=== PATIENT | male | born 1960 | race Caucasian/White ===

== ENCOUNTER 2018-12-30 22:28 | Emergency (ER) | payer SELFPAY ==
[~2018-12-30] VITALS: Ht 177.8 cm; Wt 90.0 kg
[2018-12-30 22:35] VITALS: BP 143/90
== END 2018-12-30 23:16 | disposition home or self-care (01) ==
LOC: ED 23:10
DX: F10.120 Alcohol abuse with intoxication, uncomplicated (principal); R42 Dizziness and giddiness; Z72.9 Problem related to lifestyle, unspecified
CPT/HCPCS: 93005; 99283

== ENCOUNTER 2020-05-05 16:50 | Emergency (ER) | payer MEDICAID, MEDICARE ==
[~2020-05-05] VITALS: Ht 182.9 cm; Wt 91.0 kg
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
[2020-05-05] MEDS ORDERED: SODIUM CHLORIDE FLUSH 10ML SYR IVF ONE (17:30)
[2020-05-05 18:13] LABS: BASOPHILS % (AUTO) 0 % (0-1); EOSINOPHILS % (AUTO) 3 % (1-7); LYMPHOCYTES % (AUTO) 32 % (22-44); MEAN CORPUSCULAR HEMOGLOBIN 32.8 pg (27.5-34.5); MEAN CORPUSCULAR HGB CONC 34.4 g/dL (33.2-36.2); MONOCYTES % (AUTO) 10 % (2-9); NEUTROPHILS % (AUTO) 55 % (42-75); PLATELET COUNT 373 x10^3/uL (130-400); RED BLOOD COUNT 4.58 x10^6/uL (4.38-5.82); RED CELL DISTRIBUTION WIDTH 15.3 % (9.4-14.8)
[2020-05-05 18:23] LABS: MD NO
[2020-05-05 18:25] LABS: ALBUMIN 3.5 g/dL (3.4-5.0); ANION GAP 7 mmol/L (5-15); CALCIUM 8.6 mg/dL (8.5-10.1); CHLORIDE 111 mmol/L (98-107)
[2020-05-05 18:29] LABS: ALANINE AMINOTRANSFERASE 42 U/L (12-78); ALKALINE PHOSPHATASE 35 U/L (45-117); BILIRUBIN,TOTAL 0.3 mg/dL (0.2-1.0); CREATININE 0.54 mg/dL (0.7-1.3); TOTAL PROTEIN 7.5 g/dL (6.4-8.2)
--- NOTE | 2020-05-05 18:29 | NUR ---
PT RESTING ON ED GURNEY, RAILS UP, CALL LIGHT WITHIN REACH, WATCHING TV. PT PROVIDED URINAL. VSS.
--- NOTE | 2020-05-05 19:25 | NUR ---
REPORT RECEIVED FROM RAQUEL KWON
--- NOTE | 2020-05-05 19:54 | NUR ---
PT SLEEPING WITH HEAD UNDER BLANKET. DENIES NEEDS AT THIS TIME. RESP EVEN AND UNLABORED
--- NOTE | 2020-05-05 20:52 | NUR ---
PT RESTING, NO NEEDS AT THIS TIME. EASY TO WAKE UP, RESP EVEN AND UNLABORED
--- NOTE | 2020-05-05 22:27 | NUR ---
PT UP AND WALKING AROUND ROOM WITH STEADY GAIT AND CLEAR SPEECH.
[2020-05-05 22:41] VITALS: BP 124/68
== END 2020-05-05 22:45 | disposition home or self-care (01) ==
LOC: ED 20:24
DX: S06.9X9A Unspecified intracranial injury with loss of consciousness of unspecified duration, initial encounter (principal); G31.2 Degeneration of nervous system due to alcohol; F10.120 Alcohol abuse with intoxication, uncomplicated; F17.210 Nicotine dependence, cigarettes, uncomplicated; X58.XXXA Exposure to other specified factors, initial encounter; Y93.89 Activity, other specified; Y92.89 Other specified places as the place of occurrence of the external cause; Y99.8 Other external cause status; Y90.0 Blood alcohol level of less than 20 mg/100 ml
CPT/HCPCS: 36415; 70450; 71045; 80053; 80320; 85025; 93005; 99285; 99406; G0480